=== PATIENT | male | born 1970 | race African-American/Black ===

== ENCOUNTER 2016-09-24 10:43 | Day surgery (SDC) | payer OTHER ==
[2016-09-20 11:44] VITALS: BMI 21.4
[2016-09-24] MEDS ORDERED: PROPOFOL 20 ML ONE ×2 (10:53)
[2016-09-24 11:06] VITALS: TEMP 98.5
[2016-09-24 14:11] VITALS: BP 109/68; PULSE 82
--- NOTE | 2016-09-25 13:31 | PATH ---
Surgical Pathology Report Patient Name: HANSA OBREGON [facility]. Rec. #: [id number] /Age/Gender: 1970 (Age: 46) / M Account: [id number] Location: [facility] [place] [facility] Taken: 09/24/2016 Received: 09/24/2016 Reported: 09/25/2016 Physicians: Luther Garibay M.D. Specimen(s) Received BX RECTUM Clinical History Family history of colon cancer Polyp (prior history tubulovillous adenoma), rule out dysplasia Final Diagnosis RECTUM, POLYP, POLYPECTOMY: MULTIPLE FRAGMENTS OF TUBULOVILLOUS ADENOMA (SEE COMMENT). Comment: No high grade dysplasia is identified. The completeness of resection is best assessed endoscopically. Electronically Signed Ashok York M.D. Gross Description Received in formalin, labeled "rectum" is a 1.3 x 1.0 x 0.2 cm aggregate of torres soft tissue fragments. The formalin is filtered and the specimen is entirely submitted in one cassette. 09/24/2016 saudi09/24/2016
== END 2016-09-24 13:20 | disposition home or self-care (01) ==
LOC: FASU 10:43
PROVIDERS: ATTEND Internal Medicine Gastroenterology
PROC: 3E0H8GC Introduction of Other Therapeutic Substance into Lower GI, Via Natural or Artificial Opening Endoscopic (ICD-10-PCS; 2016-09-24)
PROC: 0DBP8ZX Excision of Rectum, Via Natural or Artificial Opening Endoscopic, Diagnostic (ICD-10-PCS; principal; 2016-09-24 12:05)
PROC: 0DBN8ZX Excision of Sigmoid Colon, Via Natural or Artificial Opening Endoscopic, Diagnostic (ICD-10-PCS; 2016-09-24 12:05)
DX: Z86.010 Personal history of colon polyps (principal); Z80.0 Family history of malignant neoplasm of digestive organs; D12.7 Benign neoplasm of rectosigmoid junction
CPT/HCPCS: 88305-TC